=== PATIENT | female | born 1985 | race Caucasian/White ===

== ENCOUNTER 2020-03-23 13:23 | Emergency (ER) | payer MEDICAID ==
[~2020-03-23] VITALS: Ht 154.9 cm; Wt 103.2 kg
[2020-03-23 13:28] VITALS: BP 142/57
[2020-03-23] MEDS ORDERED: HYDROcodone/acetaminophen 5mg/325mg tablet PO ONE (13:55)
[2020-03-23] MEDS ORDERED: NAPR-56 PO (13:57)
[2020-03-23] MEDS ORDERED: PENI250T2 PO (13:57)
== END 2020-03-23 14:09 | disposition home or self-care (01) ==
LOC: ER 13:24
DX: K08.89 Other specified disorders of teeth and supporting structures (principal); Z88.8 Allergy status to other drugs, medicaments and biological substances; Z79.899 Other long term (current) drug therapy
CPT/HCPCS: 99283

== ENCOUNTER 2022-10-31 20:08 | Emergency (ER) | payer MEDICAID ==
[~2022-10-31] VITALS: Ht 152.4 cm; Wt 132.8 kg
[2022-10-31 21:07] VITALS: BP 121/72
== END 2022-10-31 23:25 | disposition home or self-care (01) ==
LOC: ER 20:08
DX: S61.214A Laceration without foreign body of right ring finger without damage to nail, initial encounter (principal); S61.216A Laceration without foreign body of right little finger without damage to nail, initial encounter; Z88.8 Allergy status to other drugs, medicaments and biological substances; W45.8XXA Other foreign body or object entering through skin, initial encounter; Y93.89 Activity, other specified; Y92.89 Other specified places as the place of occurrence of the external cause; Y99.8 Other external cause status
CPT/HCPCS: 12001; 73120; 99283

== ENCOUNTER 2024-09-04 15:24 | Emergency (ER) | payer MEDICAID ==
[~2024-09-04] VITALS: Ht 152.4 cm; Wt 147.8 kg
[2024-09-04 16:01] VITALS: TEMP 98.7
[2024-09-04] MEDS: ipratropium 0.5 MG/2.5ML nebule IH ONE (16:40)
[2024-09-04] MEDS: predniSONE 20 mg tablet PO ONE (17:02)
[2024-09-04] MEDS: albuterol 2.5 MG/3 ML nebule NEB ONE (17:04)
[2024-09-04 17:09] VITALS: PULSE 69; PULSE 78; RESP 18; RESP 19; O2SAT 97
[2024-09-04] MEDS: ipratropium/albuterol 3ml nebule NEB SCH (17:44)
[2024-09-04 17:45] VITALS: PULSE 82; PULSE 83; RESP 18; O2SAT 100; O2SAT 97
[2024-09-04] MEDS ORDERED: PRED20TA PO (17:51)
[2024-09-04 18:10] VITALS: BP 127/72; PULSE 76; RESP 18; O2SAT 97
== END 2024-09-04 18:13 | disposition home or self-care (01) ==
LOC: ER 15:24
DX: J45.901 Unspecified asthma with (acute) exacerbation (principal); E03.9 Hypothyroidism, unspecified; Z88.8 Allergy status to other drugs, medicaments and biological substances; Z20.822 Contact with and (suspected) exposure to COVID-19
CPT/HCPCS: 36415; 71045; 87502; 87503; 87811; 94640; 96372; 99284; J7512; 94760